=== PATIENT | female | born 1965 ===

== ENCOUNTER 2022-08-22 08:15 | Inpatient (IN) | payer OTHER ==
[~2022-08-22] VITALS: Ht 172.7 cm; Wt 117.9 kg
[2022-08-22] MEDS ORDERED: ATORVASTATIN CA10 MG PO (09:22)
[2022-08-22] MEDS ORDERED: ZESTRIL2.5 MG PO (09:22)
[2022-08-22] MEDS ORDERED: VOLTAREN ARTHRI20 GM (09:23)
[2022-08-29] MEDS ORDERED: PERCOCET 5-3251 EACH PO (15:24)
[2022-08-29] MEDS ORDERED: DUI500 PO (15:24)
[2022-08-29] MEDS ORDERED: ELIQUIS2.5 MG PO (15:24)
== END 2022-08-29 20:19 | DRG 470 ==
LOC: O/R 08-27 06:00 → SURG 08-27 08:15 → SURH 08-27 12:43
PROVIDERS: ADMIT Orthopaedic Surgery; ATTEND Orthopaedic Surgery
PROC: 0SRD0J9 Replacement of Left Knee Joint with Synthetic Substitute, Cemented, Open Approach (ICD-10-PCS; principal; 2022-08-27 10:45)
DX: M17.12 Unilateral primary osteoarthritis, left knee (principal); M22.12 Recurrent subluxation of patella, left knee; E66.9 Obesity, unspecified; I10 Essential (primary) hypertension